=== PATIENT | male | born 1960 | race Caucasian/White ===

== ENCOUNTER 2022-03-11 20:40 | Emergency (ER) | payer MEDICAID ==
[~2022-03-11] VITALS: Ht 182.9 cm; Wt 77.1 kg
[2022-03-11 21:15] VITALS: BP 141/79
--- NOTE | 2022-03-11 21:20 | NUR ---
TO LOBBY A/W BED VIA W/C
[2022-03-11] MEDS ORDERED: BACI1PAC6 TP (22:54)
[2022-03-11 23:37] VITALS: BP 141/79
--- NOTE | 2022-03-11 23:37 | NUR ---
Patient discharged. Written and verbal after care instructions given and explained. Patient alert, oriented and verbalized understanding of instructions. Ambulatory with steady gait. All questions addressed prior to discharge. ID band removed. Patient advised to follow up with PMD. Rx of Bacitracin Oint given. Patient educated on indication of medication including possible reaction and side effects. Opportunity to ask questions provided and answered.
== END 2022-03-11 23:37 | disposition home or self-care (01) ==
LOC: MED 20:40
DX: S80.811A Abrasion, right lower leg, initial encounter (principal); Z79.899 Other long term (current) drug therapy; Z91.018 Allergy to other foods; W18.09XA Striking against other object with subsequent fall, initial encounter; Y93.89 Activity, other specified; Y92.89 Other specified places as the place of occurrence of the external cause; Y99.8 Other external cause status
CPT/HCPCS: 99282